=== PATIENT | female | born 1990 | race African-American/Black ===

== ENCOUNTER 2019-12-07 10:13 | Emergency (ER) | payer BC ==
[2019-12-07] MEDS ORDERED: Ibuprofen 200 MG TAB ONE (11:52)
[2019-12-07] MEDS ORDERED: Cyclobenzaprine 10 MG TAB ONE (11:52)
--- NOTE | 2019-12-07 12:03 | RAD ---
Exam: XR Knee Rt 4 View STANDARD HISTORY: Right knee pain after falling. COMPARISON: None FINDINGS: No acute fracture, dislocation, or other acute osseous abnormality is identified. IMPRESSION: No acute osseous abnormality is identified.
[2019-12-07] MEDS ORDERED: Adacel (T-DAP) 0.5 ML SYRINGE ONE (12:25)
== END 2019-12-07 12:37 | disposition home or self-care (01) ==
LOC: ERS 10:13
DX: S80.01XA Contusion of right knee, initial encounter (principal); F39 Unspecified mood [affective] disorder; F17.200 Nicotine dependence, unspecified, uncomplicated; Z23 Encounter for immunization; W01.0XXA Fall on same level from slipping, tripping and stumbling without subsequent striking against object, initial encounter; Y93.67 Activity, basketball
CPT/HCPCS: 90471; 90715

== ENCOUNTER 2024-02-23 00:18 | Emergency (ER) | payer BC, SELFPAY | END 2024-02-23 01:18 | disposition home or self-care (01) | LOC: ERS 00:18 | DX: K02.9 Dental caries, unspecified (principal); F17.200 Nicotine dependence, unspecified, uncomplicated | CPT/HCPCS: 99282 ==